=== PATIENT | female | born 1980 | race Two or more races ===

== ENCOUNTER 2017-04-29 20:41 | Emergency (ER) | payer SELFPAY, MEDICAID | END 2017-04-29 22:26 | disposition home or self-care (01) | LOC: ER 20:41 | DX: S70.12XA Contusion of left thigh, initial encounter (principal); I10 Essential (primary) hypertension; X58.XXXA Exposure to other specified factors, initial encounter; Y93.89 Activity, other specified; Y92.89 Other specified places as the place of occurrence of the external cause; Y99.8 Other external cause status | CPT/HCPCS: 93971; 99284-25 ==

== ENCOUNTER 2018-05-01 00:37 | Emergency (ER) | payer SELFPAY ==
[~2018-05-01] VITALS: Ht 162.6 cm; Wt 116.1 kg
[~2018-05-01 00:37] MED LIST: ASPI325T8 PO; CYCL10TA2 PO; FERR325T58 PO; HYDR-3164 PO; NAPR500T8 PO
[2018-05-01 00:53] VITALS: BP 153/73
[2018-05-01] MEDS ORDERED: AMOXICILLIN 250 MG CAPSULE. PO ONE (01:45)
[2018-05-01] MEDS ORDERED: KETOROLAC 30 MG/ML VIAL. IM ONE (01:45)
[2018-05-01] MEDS ORDERED: HYDR-3164 PO (01:46)
[2018-05-01] MEDS ORDERED: AMOX1TAB61 PO (01:46)
--- NOTE | 2018-05-01 03:01 | PHYS DOC ---
Past Medical History Past Medical History: No Pertinent History, Hypertension Past Surgical History: No Surgical History Alcohol Use: None Drug Use: None Adult General Chief Complaint Chief Complaint: EARACHE/EAR PAIN HPI HPI Patient is a 38 year old Slovak-only speaker, accompanied by her son who is translating for her, who presents with a left sided toothache radiating to the jaw and ear. She has had this pain for one week and it has become worse. She rates the pain a 10/10 and notes its burning, stabbing, and "very hot."She denies sick contacts, though her son is also being seen in the ED for an earache. They both deny recent travel, swimming, dental work, medication changes , and trauma. She admits to LUCIANO, fever, chills, muscle aches, and fatigue. She denies CP, SOB, N/V, visual changes, and abdominal pain. Review of Systems Review of Systems Constitutional: Admits fever or chills Eyes: Denies change in visual acuity, redness, or eye pain HENT: Denies nasal congestion or sore throat. Admits mouth, face, and ear pain on the left. Respiratory: Denies cough or shortness of breath Cardiovascular: No additional information not addressed in HPI GI: Denies abdominal pain, nausea, vomiting, bloody stools or diarrhea : Denies dysuria or hematuria Musculoskeletal: Admits to muscle aches Integument: Denies rash or skin lesions Neurologic: Denies headache, focal weakness or sensory changes Endocrine: Denies polyuria or polydipsia All other systems were reviewed and found to be within normal limits, except as documented in this note. Current Medications Current Medications Current Medications Medications (Trade) Dose Ordered Sig/Katerine Start Time Stop Time Status Last Admin Dose Admin Amoxicillin (Amoxil) 500 mg 1X ONCE 05/01/18 01:45 05/01/18 01:46 DC 05/01/18 01:45 500 MG Ketorolac Tromethamine (Toradol 30mg Vial) 30 mg 1X ONCE 05/01/18 01:45 05/01/18 01:46 DC 05/01/18 01:45 30 MG Allergies Allergies Allergies Coded Allergies Type Severity Reaction Last Updated Verified No Known Drug Allergies 12/12/13 No Physical Exam Physical Exam Constitutional: Well developed, well nourished, acute distress, ill-appearance. [] HENT: Normocephalic, atraumatic, bilateral external ears normal but left was exquistely tender to the touch. oropharynx moist, no oral exudates, nose normal. Bottom tooth on left, last molar is cracked open with a hole in the tooth w/out signs of erythema, abscess or infection. tms clear no abscess identified Eyes: PERRLA, EOMI, conjunctiva normal, no discharge. Neck: Normal range of motion, no tenderness, supple, no stridor. Cardiovascular:Heart rate regular rhythm, no murmur Lungs & Thorax: Bilateral breath sounds clear to auscultation Abdomen: Bowel sounds normal, soft, no tenderness, no masses, no pulsatile masses. Skin: Warm, dry, no erythema, no rash. Back: No tenderness, no CVA tenderness. Extremities: No tenderness, no cyanosis, no clubbing, ROM intact, no edema. Neurologic: Alert and oriented X 3, normal motor function, normal sensory function, no focal deficits noted. Psychologic: Affect normal, judgement normal, mood normal. Current Patient Data Vital Signs Vital Signs Date Time Temp Pulse Resp B/P (MAP) Pulse Ox O2 Delivery O2 Flow Rate FiO2 05/01/18 00:53 98.6 92 18 153/73 (99) 100 Room Air 98.6 EKG EKG [] Radiology/Procedures Radiology/Procedures [] Course & Med Decision Making Course & Med Decision Making 38 yo female presenting with tooth/face pain and earache described the pain as sharp and a 10/10 starting on her left side at her last lower molar and radiating to her ear. Upon oral inspection a cracked, open hole in her left lower last molar was discovered that the patient was unaware of. There were no signs of infection/erythema, swelling or abscess. She was given a small amount of pain medication to help her with the pain until she could see a dentist this upcoming work week. She was given the numbers to multiple dentists in the area and discussed with her son that she needed to make an appointment with a dentist and he understood. Dragon Disclaimer Dragon Disclaimer This electronic medical record was generated, in whole or in part, using a voice recognition dictation system. Departure Departure Impression: Primary Impression: Toothache Disposition: 01 HOME, SELF-CARE Condition: STABLE Referrals: NO PCP (PCP) Patient Instructions: Toothache-Brief Scripts Hydrocodone/Apap 5-325 (NORCO 5-325 TABLET) 1 Each Tablet 1-2 EACH PO PRN Q6HRS PRN for PAIN, #15 as needed for pain Prov: DEANNA CALLEJAS MD 05/01/18 Amoxicillin/Potassium Clav (AUGMENTIN 875-125 TABLET) 1 Each Tablet 1 TAB PO BID, #14 TAB Prov: DEANNA CALLEJAS MD 05/01/18 DEANNA CALLEJAS MD May 01, 2018 03:01
== END 2018-05-01 01:58 | disposition home or self-care (01) ==
LOC: ER 00:37
DX: K08.89 Other specified disorders of teeth and supporting structures (principal); I10 Essential (primary) hypertension; H92.02 Otalgia, left ear; M79.18 Myalgia, other site
CPT/HCPCS: 96372; 99283; J1885